=== PATIENT | female | born 1985 | race African-American/Black ===

== ENCOUNTER 2023-05-06 10:49 | Inpatient (IN) | payer OTHER ==
[2023-05-06 11:46] VITALS: BMI 29.7
[2023-05-06] MEDS ORDERED: IBUPROFEN 400 MG TABLET (FP) PO PRN (12:37)
[2023-05-06] MEDS ORDERED: guaiFENesin 600 MG TABLET.ER (FP) PO PRN (12:37)
[2023-05-06] MEDS ORDERED: DICYCLOMINE HCL 10 MG CAPSULE PO PRN (12:37)
[2023-05-06] MEDS ORDERED: NALOXONE HCL 0.4 MG/ML VIAL IM PRN (12:37)
[2023-05-06] MEDS ORDERED: NALOXONE HCL (KLOXXADO) 8 MG SPRAY NS PRN (12:37)
[2023-05-06] MEDS ORDERED: BENZONATATE 200 MG CAPSULE PO PRN (12:37)
[2023-05-06] MEDS ORDERED: LOPERAMIDE HCL 2 MG CAPSULE PO PRN (12:37)
[2023-05-06] MEDS ORDERED: ACETAMINOPHEN 325 MG TABLET (FP) PO PRN (12:37)
[2023-05-06] MEDS ORDERED: BISMUTH SUBSALICYLATE 524 MG/30 ML PO PRN (12:37)
[2023-05-06] MEDS ORDERED: BENZOCAINE/MENTHOL (CHLORASEPTIC ) LOZENGE MM PRN (12:37)
[2023-05-06] MEDS ORDERED: ONDANSETRON *ODT* 4 MG TABLET SL PRN (12:37)
[2023-05-06] MEDS ORDERED: POLYETHYLENE GLYCOL (HEALTHYLAX) 3350 17 GM PACKET PO PRN (12:37)
[2023-05-06] MEDS ORDERED: IBUPROFEN 600 MG TABLET (FP) PO PRN (12:37)
[2023-05-06] MEDS ORDERED: MAG HYDROX/AL HYDROX/SIMETH 30 ML UNIT-DOSE CUP PO PRN (12:37)
[2023-05-06] MEDS ORDERED: MAGNESIUM HYDROX 2400MG/30ML ORAL SUSPENSION 30 ML CUP PO PRN (12:37)
[2023-05-06] MEDS: METHOCARBAMOL 500 MG TABLET PO PRN (22:18)
[2023-05-06] MEDS: hydrOXYzine PAMOATE 25 MG CAPSULE (FP) PO PRN (22:18)
[2023-05-06] MEDS: THIAMINE HCL 100 MG TABLET (FP) PO SCH (22:19)
[2023-05-06] MEDS: MELATONIN 5 MG TABLETS PO SCH (22:19)
[2023-05-07] MEDS: PRENATAL VITAMINS W/ FOLIC ACID TABLET (FP) PO SCH (10:13)
[2023-05-07] MEDS: PNEUMOC 20-VAL CONJ-DIP CRM/PF 0.5 ML SYRINGE IM ONE (11:31)
[2023-05-07 11:37] LABS: HEMOGLOBIN 10.8 GM/dL (10.7-15.3); MCH 27.9 pg (25.7-33.7); MCHC 31.8 g/dl (32.0-36.0); MEAN CELL VOLUME 87.8 fl (80-96); MEAN PLT VOLUME 9.8 fl (7.5-11.1); PLATELET COUNT 85 10^3/uL (134-434); RBC 3.88 M/mm3 (3.60-5.2); WHITE BLOOD COUNT 4.4 K/mm3 (4.0-10.0)
[2023-05-07 11:50] LABS: CHLORIDE 103 mmol/L (98-107); SODIUM 140 mmol/L (136-145)
[2023-05-07 12:00] LABS: ALBUMIN 3.3 g/dl (3.4-5.0); CALCIUM 9.2 mg/dL (8.5-10.1); GLUCOSE,RANDOM 105 mg/dL (74-106); SGPT/ALT 49 U/L (13-61)
[2023-05-07 12:01] LABS: ANION GAP 10 mmol/L (4-13); BILIRUBIN,TOTAL 0.5 mg/dL (0.2-1); BLOOD UREA NITROGEN 12.1 mg/dL (7-18); CO2 28 mmol/L (21-32); TOT PROT 7.3 g/dl (6.4-8.2)
[2023-05-07 12:02] LABS: ALK PHOS 68 U/L (45-117)
[2023-05-07 12:03] LABS: CREATININE 0.7 mg/dL (0.55-1.3)
[2023-05-07 12:04] LABS: SGOT/AST 50 U/L (15-37)
[2023-05-07 12:46] LABS: HIV INTERPRETATION NEGATIVE (NEGATIVE)
[2023-05-07 12:55] LABS: HIV INTERPRETATION NEGATIVE (NEGATIVE)
[2023-05-07] MEDS: amLODIPine BESYLATE 5 MG TABLET (FP) PO SCH (15:52)
[2023-05-07] MEDS: POTASSIUM CHLORIDE ORAL LIQUID 20 MEQ/15 ML PO SCH (16:59)
[2023-05-08 09:19] VITALS: BP 128/89; PULSE 74; RESP 18; TEMP 98.2
== END 2023-05-08 08:45 | disposition home or self-care (01) | DRG 775 ==
LOC: YASAS 10:49 → Y6N 13:04
PROVIDERS: ADMIT Allergy & Immunology; ATTEND Surgery
PROC: HZ2ZZZZ Detoxification Services for Substance Abuse Treatment (ICD-10-PCS; principal; 2023-05-06)
DX: F10.24 Alcohol dependence with alcohol-induced mood disorder (principal); F10.20 Alcohol dependence, uncomplicated; F17.210 Nicotine dependence, cigarettes, uncomplicated; F10.282 Alcohol dependence with alcohol-induced sleep disorder; F32.A Depression, unspecified; D69.6 Thrombocytopenia, unspecified; E87.6 Hypokalemia; I10 Essential (primary) hypertension
CPT/HCPCS: 36415; 80053; 80305; 80307; 81025; 84132; 85027; 86780; 87389; 93005; 93010